=== PATIENT | female | born 1960 | race Caucasian/White ===

== ENCOUNTER 2019-06-29 07:23 | Day surgery (SDC) | payer OTHER ==
[2019-06-28 12:26] VITALS: BMI 34.0
[2019-06-29] MEDS ORDERED: LIDOCAINE HCL 2% JELLY 10 ML CARTRIDGE ONE (08:36)
[2019-06-29] MEDS ORDERED: LIDOCAINE HCL 2% JELLY 10 ML CARTRIDGE TP ONE (08:54)
[2019-06-29 09:08] VITALS: TEMP 97.7
[2019-06-29 14:13] VITALS: BP 130/79; PULSE 63
--- NOTE | 2019-06-30 14:33 | PATH ---
Surgical Pathology Report Patient Name: ALIDA GARCIA [facility]. Rec. #: [id number] /Age/Gender: 1960 (Age: 59) / F Account: [id number] Location: [facility]-ENDOSCOPY Taken: 06/29/2019 Received: 06/29/2019 Reported: 06/30/2019 Physicians: Harpal Diaz M.D. Specimen(s) Received A: ANTRUM B: COLON, RIGHT, POLYP Clinical History Acid reflux, history of colon polyps, hemorrhoids Postoperative diagnosis: Abdominal pain, acid reflux, colon polyp, diverticulosis, hemorrhoids Final Diagnosis A. STOMACH, ANTRUM, BIOPSY: GASTRIC ANTRAL MUCOSA WITH MILD CHRONIC GASTRITIS. IMMUNOHISTOCHEMICAL STAIN FOR H. PYLORI IS NEGATIVE. B. COLON, RIGHT, POLYP, POLYPECTOMY: TUBULAR ADENOMA. Electronically Signed Alida Menchaca M.D. Gross Description A. Received in formalin, labeled "biopsy antrum" are 2 simon, irregular portions of soft tissue measuring 0.3 and 0.6 cm. in greatest dimension. The specimens are submitted in toto in one cassette. B. Received in formalin, labeled "right colon polyp" are 2 simon, irregular portions of soft tissue measuring 0.2 and 0.8 cm. in greatest dimension. The specimens are submitted in toto in one cassette. 06/29/201906/29/2019
== END 2019-06-29 10:15 | disposition home or self-care (01) ==
LOC: JASU-ENDO 07:23
PROVIDERS: ATTEND Internal Medicine Gastroenterology
PROC: 06LY4CC Occlusion of Hemorrhoidal Plexus with Extraluminal Device, Percutaneous Endoscopic Approach (ICD-10-PCS; 2019-06-29)
PROC: 0DB68ZX Excision of Stomach, Via Natural or Artificial Opening Endoscopic, Diagnostic (ICD-10-PCS; 2019-06-29)
PROC: 0DBF8ZX Excision of Right Large Intestine, Via Natural or Artificial Opening Endoscopic, Diagnostic (ICD-10-PCS; principal; 2019-06-29 08:00)
DX: Z12.11 Encounter for screening for malignant neoplasm of colon (principal); Z86.010 Personal history of colon polyps; D12.6 Benign neoplasm of colon, unspecified; K64.8 Other hemorrhoids; K57.30 Diverticulosis of large intestine without perforation or abscess without bleeding; K21.9 Gastro-esophageal reflux disease without esophagitis
CPT/HCPCS: 88305-TC; 88342-TC